=== PATIENT | female | born 1965 | race Hispanic/Latino ===

== ENCOUNTER 2018-08-09 09:29 | Emergency (ER) | payer SELFPAY ==
[2018-08-09] MEDS ORDERED: cloNIDine HCl 0.1 MG TAB ONE (10:10)
--- NOTE | 2018-08-09 10:53 | EDPHYS ---
Physician Documentation [facility] Name: Adriana Arita Age: 52 yrs Sex: Female : 1965 Arrival Date: 08/09/2018 Time: 09:32 Bed 5 Private MD: ED Physician Fredrick Carpenter HPI: 08/09 11:29 This 52 yrs old Female presents to ER via Ambulatory with complaints of Blood tw4 Pressure Problem. 11:29 The patient has elevated blood pressure and discovered this at home, with a home tw4 device. Onset: The symptoms/episode began/occurred last week. Modifying factors: The symptoms are aggravated by discontinuation of meds, MANUEL-inhibitor. Associated signs and symptoms: The patient has no apparent associated signs or symptoms. The patient has not experienced similar symptoms in the past. [employer]: 10:02 LMP N/A - Irregular menses bp Historical: - Allergies: 09:43 No Known Allergies; aa5 - PMHx: 09:43 Hypertension; Heart Murmur; aa5 - PSHx: 09:43 Tubal ligation; aa5 - Immunization history:: Adult Immunizations up to date. - Social history:: Smoking status: Patient/guardian denies using tobacco. - Ebola Screening: : No symptoms or risks identified at this time. ROS: 11:29 Constitutional: Negative for fever, chills, and weight loss, Eyes: Negative for injury, tw4 pain, redness, and discharge, Cardiovascular: Negative for chest pain, palpitations, and edema, Respiratory: Negative for shortness of breath, cough, wheezing, and pleuritic chest pain, Abdomen/GI: Negative for abdominal pain, nausea, vomiting, diarrhea, and constipation, Back: Negative for injury and pain, MS/Extremity: Negative for injury and deformity, Skin: Negative for injury, rash, and discoloration. 11:29 Neuro: Positive for dizziness, numbness, Negative for altered mental status, gait disturbance, hearing loss, seizure activity, speech changes, tremor, visual changes, weakness. Exam: 11:29 Constitutional: This is a well developed, well nourished patient who is awake, alert, tw4 and in no acute distress. Head/Face: Normocephalic, atraumatic. Chest/axilla: Normal chest wall appearance and motion. Nontender with no deformity. No lesions are appreciated. Cardiovascular: Regular rate and rhythm with a normal S1 and S2. No gallops, murmurs, or rubs. Normal PMI, no JVD. No pulse deficits. Respiratory: Lungs have equal breath sounds bilaterally, clear to auscultation and percussion. No rales, rhonchi or wheezes noted. No increased work of breathing, no retractions or nasal flaring. Abdomen/GI: Soft, non-tender, with normal bowel sounds. No distension or tympany. No guarding or rebound. No evidence of tenderness throughout. Back: No spinal tenderness. No costovertebral tenderness. Full range of motion. MS/ Extremity: Pulses equal, no cyanosis. Neurovascular intact. Full, normal range of motion. Neuro: Awake and alert, GCS 15, oriented to person, place, time, and situation. Cranial nerves II-XII grossly intact. Motor strength 5/5 in all extremities. Sensory grossly intact. Cerebellar exam normal. Normal gait. Vital Signs: 09:43 BP 188 / 96; Pulse 61; Resp 16 S; Temp 97.6; Pulse Ox 100% on R/A; Weight 68.04 kg (R); bp Height 5 ft. 5 in. (165.10 cm) (R); Pain 0/10; 10:02 BP 160 / 87; Pulse 58; Resp 16; Pulse Ox 98% ; bp 10:41 BP 149 / 87; Pulse 56; Resp 14; Pulse Ox 97% ; bp 11:28 BP 133 / 76; Pulse 54; Resp 14; Pulse Ox 100% ; bp 09:43 Body Mass Index 24.96 (68.04 kg, 165.10 cm) bp MDM: 09:38 Patient medically screened. tw4 11:29 Differential diagnosis: hypertensive crisis, Malignant HTN. Data reviewed: vital signs, tw4 nurses notes. Data interpreted: Pulse oximetry: Interpretation:. Counseling: I had a detailed discussion with the patient and/or guardian regarding: the historical points, exam findings, and any diagnostic results supporting the discharge/admit diagnosis. Counseling: I had a detailed discussion with the patient and/or guardian regarding: the presence of at least one elevated blood pressure reading (>120/80) during this emergency department visit. Special discussion: I discussed with the patient/guardian in detail that at this point there is no indication for admission to the hospital. It is understood, however, that if the symptoms persist or worsen the patient needs to return immediately for re-evaluation. Administered Medications: :55 CANCELLED (Physician Discretion): cloNIDine 0.2 mg PO once 5 09:55 CANCELLED (Physician Discretion): hydrALAZINE 10 mg IM once 10:02 Drug: cloNIDine 0.1 mg Route: PO; bp 11:09 Follow up: Response: Marked relief of symptoms bp 11:11 Drug: Meclizine 25 mg Route: PO; bp Disposition: 08/09/18 10:52 Discharged to Home. Impression: Hypertensive urgency. - Condition is Stable. - Discharge Instructions: Hypertension, Hypertension, [id number]. - Prescriptions for Lisinopril 10 mg Oral Tablet - take 1 tablet by ORAL route once daily; 90 tablet. - Medication Reconciliation Form, Thank You Letter, Antibiotic Education, Prescription Opioid Use form. - Follow up: Private Physician; When: Upon discharge from the Emergency Department; Reason: If symptoms return, Recheck today's complaints, Continuance of care, Re-evaluation by your physician. - Problem is new. - Symptoms have improved. Signatures: Ermelinda Velasco, RN RN aa5 Paulino Montes RN RN bp Fredrick Carpenter MD MD tw4 Corrections: (The following items were deleted from the chart) 09:55 09:51 cloNIDine 0.2 mg PO once ordered. aa5 09:55 09:51 hydrALAZINE 10 mg IM once ordered. tw4 aa5 11:29 10:52 08/09/2018 10:52 Discharged to Home. Impression: Hypertensive urgency. Condition bp is Stable. Forms are Medication Reconciliation Form, Thank You Letter, Antibiotic Education, Prescription Opioid Use. Follow up: Private Physician; When: Upon discharge from the Emergency Department; Reason: If symptoms return, Recheck today's complaints, Continuance of care, Re-evaluation by your physician. Problem is new. Symptoms have improved. tw4
--- NOTE | 2018-08-09 10:53 | ER ---
Nurse's Notes [facility] Name: Adriana Arita Age: 52 yrs Sex: Female : 1965 Arrival Date: 08/09/2018 Time: 09:32 Bed 5 Private MD: Diagnosis: Hypertensive urgency Presentation: 08/09 09:38 Presenting complaint: Patient states: dizziness and chills that began last night. aa5 Intermittent left middle \\T\\ ring finger numbness radiating up left arm x 8-10 days ago. Pt states "I've been out of lisinopril for about a month ". 09:38 Transition of care: patient was not received from another setting of care. Onset of aa5 symptoms was July 2018. Risk Assessment: Do you want to hurt yourself or someone else? Patient reports no desire to harm self or others. Initial Sepsis Screen: Does the patient meet any 2 criteria? No. Patient's initial sepsis screen is negative. Does the patient have a suspected source of infection? No. Patient's initial sepsis screen is negative. Care prior to arrival: None. 09:38 Method Of Arrival: Ambulatory aa5 09:38 Acuity: DAVID 3 aa5 Triage Assessment: 10:03 General: Appears in no apparent distress. comfortable, Behavior is cooperative, bp appropriate for age, anxious. Pain: Complains of pain in head. 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 - Social history:: Smoking status: Patient/guardian denies using tobacco. - Ebola Screening: : No symptoms or risks identified at this time. Screenin:13 Abuse screen: Denies threats or abuse. Denies injuries from another. Nutritional bp screening: No deficits noted. Tuberculosis screening: No symptoms or risk factors identified. Fall Risk None identified. Assessment: 09:35 General: Appears in no apparent distress. comfortable, obese, Behavior is cooperative, bp appropriate for age, anxious. Pain: Complains of pain in head. Neuro: Level of Consciousness is awake, alert, obeys commands, Oriented to person, place, time, situation, Appropriate for age. Cardiovascular: No deficits noted. Respiratory: Airway is patent Respiratory effort is even, unlabored, Respiratory pattern is regular, symmetrical. GI: No signs and/or symptoms were reported involving the gastrointestinal system. : No signs and/or symptoms were reported regarding the genitourinary system. EENT: No deficits noted. Derm: No deficits noted. Musculoskeletal: Circulation, motion, and sensation intact. Range of motion: intact in all extremities. 11:12 Reassessment: D/C ON HOLD FOR DIZZINESS. bp Vital Signs: 09:43 BP 188 / 96; Pulse 61; Resp 16 S; Temp 97.6; Pulse Ox 100% on R/A; Weight 68.04 kg (R); bp Height 5 ft. 5 in. (165.10 cm) (R); Pain 0/10; 10:02 BP 160 / 87; Pulse 58; Resp 16; Pulse Ox 98% ; bp 10:41 BP 149 / 87; Pulse 56; Resp 14; Pulse Ox 97% ; bp 11:28 BP 133 / 76; Pulse 54; Resp 14; Pulse Ox 100% ; bp 09:43 Body Mass Index 24.96 (68.04 kg, 165.10 cm) bp ED Course: 09:32 Patient arrived in ED. mr 09:34 Paulino Montes, DELMER is Primary Nurse. bp 09:38 Fredrick Carpenter MD is Attending Physician. tw4 09:39 Arm band placed on Patient placed in an exam room, on a stretcher. aa5 09:43 Triage completed. aa5 11:13 Patient has correct armband on for positive identification. Bed in low position. Call bp light in reach. Side rails up X2. Adult w/ patient. 11:13 No provider procedures requiring assistance completed. Patient did not have IV access bp during this emergency room visit. Administered Medications: 09:55 CANCELLED (Physician Discretion): cloNIDine 0.2 mg PO once aa5 09:55 CANCELLED (Physician Discretion): hydrALAZINE 10 mg IM once aa5 10:02 Drug: cloNIDine 0.1 mg Route: PO; bp 11:09 Follow up: Response: Marked relief of symptoms bp 11:11 Drug: Meclizine 25 mg Route: PO; bp Outcome: 10:52 Discharge ordered by . tw4 11:29 Discharged to home via wheelchair, with family. bp 11:29 Condition: stable 11:29 Discharge instructions given to patient, Instructed on discharge instructions, follow up and referral plans. medication usage, Demonstrated understanding of instructions, follow-up care, medications, Prescriptions given X 1. 11:29 Patient left the ED. bp Signatures: Chavira, Mel VelascoErmelinda, RN RN aa5 Paulino Montes RN RN bp Fredrick Carpenter MD MD tw4 Corrections: (The following items were deleted from the chart) 09:47 09:43 BP 188 / 96; Pulse 61bpm; Resp 16bpm; Spontaneous; Pulse Ox 100% RA; 68.04 kg bp Reported; Height 5 ft. 5 in. Reported; BMI: 24.9; Pain 0/10; aa5
[2018-08-09] MEDS ORDERED: MECLIZINE HCL 12.5 MG TAB ONE (11:14)
== END 2018-08-09 11:29 | disposition home or self-care (01) ==
LOC: ER 09:29
DX: I16.0 Hypertensive urgency (principal); R01.1 Cardiac murmur, unspecified